=== PATIENT | male | born 1955 | race African-American/Black ===

== ENCOUNTER 2020-07-10 14:48 | Inpatient (IN) | payer BC ==
--- NOTE | 2020-07-10 15:35 | XR ---
EXAMINATION TYPE: XR chest 2V DATE OF EXAM: 07/10/2020 COMPARISON: NONE HISTORY: Right-sided chest pain. TECHNIQUE: Frontal and lateral views of the chest are obtained. FINDINGS: There is mild underlying emphysematous change without suspicious focal air space opacity, pleural effusion, or pneumothorax seen. The cardiac silhouette size is within normal limits. The o sseous structures are intact. IMPRESSION: Mild emphysematous change without acute pulmonary process.
--- NOTE | 2020-07-10 17:04 | US ---
EXAMINATION TYPE: US venous doppler duplex LE RT DATE OF EXAM: 07/10/2020 4:19 PM COMPARISON: NONE CLINICAL HISTORY: right leg pain. SIDE PERFORMED: Right TECHNIQUE: The lower extremity deep venous system is examined utilizing real time linear array sonog kelly with graded compression, doppler sonography and color-flow sonography. VESSELS IMAGED: Common Femoral Vein Deep Femoral Vein Greater Saphenous Vein * Femoral Vein Popliteal Vein Small Saphenous Vein * Proximal Calf Veins (* superficial vessels) Right Leg: Negative for DVT IMPRESSION: No evidence of deep vein thrombosis in the right leg.
[2020-07-10 17:11] LABS: Basophils % (A) 0 %; Eosinophils # (A) 0.1 k/uL (0-0.7); Eosinophils % (A) 1 %; HCT 43.7 % (39.0-53.0); HGB 14.2 gm/dL (13.0-17.5); Lymphocytes # (A) 1.4 k/uL (1.0-4.8); Lymphocytes % (A) 19 %; MCH 28.7 pg (25.0-35.0); MCHC 32.4 g/dL (31.0-37.0); MCV 88.6 fL (80.0-100.0); Mean Platelet Volume 7.3; Monocytes # (A) 0.5 k/uL (0-1.0); Monocytes % (A) 7 %; Neutrophils # (A) 5.3 k/uL (1.3-7.7); Neutrophils % (A) 71 %; Platelet Count 313 k/uL (150-450); RBC 4.93 m/uL (4.30-5.90); RDW 14.7 % (11.5-15.5); WBC 7.5 k/uL (3.8-10.6)
[2020-07-10 17:22] LABS: ALT <6 U/L (4-49); AST 25 U/L (17-59); African American GFR (CKD) 22 (>60 ml/min/1.73 sqM); Albumin 4.7 g/dL (3.5-5.0); Alkaline Phosphatase 103 U/L (38-126); Anion Gap 12 mmol/L; Blood Urea Nitrogen 44 mg/dL (9-20); Calcium 10.3 mg/dL (8.4-10.2); Carbon Dioxide 23 mmol/L (22-30); Chloride 101 mmol/L (98-107); Glucose 97 mg/dL (74-99); Magnesium 1.9 mg/dL (1.6-2.3); Non-African American GFR(CKD) 19 (>60 ml/min/1.73 sqM); Potassium 3.6 mmol/L (3.5-5.1); Sodium 136 mmol/L (137-145); Total Bilirubin 0.9 mg/dL (0.2-1.3); Total Protein 7.8 g/dL (6.3-8.2)
[2020-07-10 17:24] LABS: INR 0.9 (<1.2); Prothrombin Time 10.1 sec (9.0-12.0)
[2020-07-10 17:37] LABS: D-Dimer 2.54 mg/L FEU (<0.60)
[2020-07-10 19:15] LABS: Appearance,Urine Clear (Clear); Bilirubin,Urine Negative (Negative); Blood,Urine Negative (Negative); Color,Urine Yellow; Glucose,Urine (UA) Negative (Negative); Hyaline Casts,Urine 3 /lpf (0-2); Ketones,Urine Negative (Negative); Leukocyte Esterase,Urine Negative (Negative); Mucus,Urine Rare /hpf; Nitrite,Urine Negative (Negative); Protein,Urine 1+ (Negative); RBC,Urine <1 /hpf (0-5); Specific Gravity,Urine 1.015 (1.001-1.035); Squamous Epithelial Cell,Urine <1 /hpf (0-4); Urobilinogen,Urine <2.0 mg/dL (<2.0); WBC,Urine <1 /hpf (0-5)
[2020-07-10] MEDS ORDERED: NALOXONE 0.4 MG/ML 1 ML VIAL IV PRN (19:32)
--- NOTE | 2020-07-10 19:32 | ED ---
General Adult HPI - General Chief complaint: Recheck/Abnormal Lab/Rx Stated complaint: Sent by pcp Time Seen by Provider: 07/10/20 16:14 Source: patient Mode of arrival: ambulatory Limitations: no limitations - History of Present Illness Initial comments: Patient is a 65-year-old male with past medical history of dementia, high blood pressure who presents to the emergency department under the direction of Dr. Mejia. Patient reports that he went into his office on Monday as he was having right leg pain. Dr. Mejia brenton some blood work. He then called our facility today to state that he called the patient to tell him to come into the hospital. Patient was found to have high d-dimer and Dr. Mejia wanted him to have an ultrasound. Patient cannot provide any further details. He is a poor historian. Denies previous history of diabetes, renal disease, DVT or PE. Denies any chest pain or shortness of breath. No abdominal pain. No recent fevers or chills. The remainder of the HPI is limited. - Related Data Home Medications Medication Instructions Recorded Confirmed Dextroamphetamine/Amphetamine 15 mg PO BID 07/10/20 07/10/20 [Dextroamp-Amphetamin 30 mg Tab] Donepezil Hcl 23mg 1 tab PO DAILY 07/10/20 07/10/20 LORazepam [Ativan] 1 mg PO DAILY PRN 07/10/20 07/10/20 Metoprolol Tartrate [Lopressor] 50 mg PO BID-W/MEALS 07/10/20 07/10/20 NIFEdipine [NIFEdipine ER] 90 mg PO DAILY 07/10/20 07/10/20 Potassium Citrate [Potassium 10 meq PO BID 07/10/20 07/10/20 Citrate ER] hydrALAZINE HCL [Apresoline] 25 mg PO BID-W/MEALS 07/10/20 07/10/20 hydroCHLOROthiazide [Hydrodiuril] 25 mg PO DAILY 07/10/20 07/10/20 Allergies Allergy/AdvReac Type Severity Reaction Status Date / Time buspirone [From BuSpar] Allergy Anaphylaxis Verified 07/11/20 14:18 lisinopril Allergy Unknown Verified 07/10/20 17:51 tiotropium Allergy Anaphylaxis Verified 07/11/20 14:18 [From Spiriva with HandiHaler] Review of Systems ROS Statement: Those systems with pertinent positive or pertinent negative responses have been documented in the HPI. ROS Other: All systems not noted in ROS Statement are negative. Past Medical History Past Medical History: Unable to Obtain Past Surgical History: Unable to Obtain Smoking Status: Current every day smoker Past Alcohol Use History: None Reported Past Drug Use History: Marijuana General Exam Limitations: no limitations General appearance: alert, in no apparent distress Head exam: Present: atraumatic, normocephalic, normal inspection Eye exam: Present: normal appearance, PERRL, EOMI. Absent: scleral icterus, conjunctival injection, periorbital swelling ENT exam: Present: normal exam, mucous membranes moist Neck exam: Present: normal inspection. Absent: tenderness, meningismus, lymphadenopathy Respiratory exam: Present: normal lung sounds bilaterally. Absent: respiratory distress, wheezes, rales, rhonchi, stridor Cardiovascular Exam: Present: regular rate, normal rhythm, normal heart sounds. Absent: systolic murmur, diastolic murmur, rubs, gallop, clicks GI/Abdominal exam: Present: soft, normal bowel sounds. Absent: distended, tenderness, guarding, rebound, rigid Extremities exam: Present: normal inspection, full ROM, normal capillary refill, calf tenderness (right. ), other (5/5 muscle strength b/l le). Absent: tend erness, pedal edema, joint swelling Back exam: Present: normal inspection Neurological exam: Present: alert, oriented X3, CN II-XII intact Psychiatric exam: Present: normal affect, normal mood Skin exam: Present: warm, dry, intact, normal color. Absent: rash Course Vital Signs 07/10/20 07/10/20 07/10/20 14:51 16:31 17:00 Temperature 97.9 F Pulse Rate 96 81 72 Respiratory 18 18 16 Rate Blood Pressure 140/98 148/108 127/89 O2 Sat by Pulse 97 97 96 Oximetry 07/10/20 07/10/20 07/10/20 18:00 19:00 21:33 Temperature 99.0 F Pulse Rate 91 80 79 Respiratory 16 16 18 Rate Blood Pressure 127/89 147/105 150/103 O2 Sat by Pulse 98 97 97 Oximetry EKG Findings - EKG Comments: EKG Findings:: EKG demonstrates sinus rhythm with PACs. Rate of 75. WI interval 188. QRS 100. QTC of 490. Biphasic T-wave in V4 through V6. No old to compare to Procedures - Melvin Protocol (Time Out) Nurse: July Swann Medical Decision Making - Medical Decision Making On arrival patient was placed into room 8. A thorough history and physical exam was performed. IV is established. Laboratory studies were conducted and an ultrasound was performed the patient's right leg. D-dimer does come back elevated at 2.5. Creatinine is 3.2. Urinalysis is negative. Venous Doppler is negative for acute DVT. Chest x-ray demonstrates mild emphysematous changes. Results are discussed the patient. He denies previous history of kidney disease or failure. Denies NSAID use. Patient is on hydrochlorothiazide. Reports to frequent urination. Ultrasound of the kidneys is performed which demonstrates simple left renal cortical cyst. No solid renal mass or obstruction. No bladder mass. I did discuss the results with the patient. Recommended admission for further evaluation of renal failure. Spoke with Jenny from [facility] to agree to admit the patient. Patient is currently awaiting a bed on the floor - Lab Data Result diagrams: 07/11/20 06:30 07/12/20 05:40 Lab Results 07/10/20 07/10/20 07/10/20 Range/Units 16:36 16:36 16:36 WBC 7.5 (3.8-10.6) k/uL RBC 4.93 (4.30-5.90) m/uL Hgb 14.2 (13.0-17.5) gm/dL Hct 43.7 (39.0-53.0) % MCV 88.6 (80.0-100.0) fL MCH 28.7 (25.0-35.0) pg MCHC 32.4 (31.0-37.0) g/dL RDW 14.7 (11.5-15.5) % Plt Count 313 (150-450) k/uL MPV 7.3 Neutrophils % 71 % Lymphocytes % 19 % Monocytes % 7 % Eosinophils % 1 % Basophils % 0 % Neutrophils # 5.3 (1.3-7.7) k/uL Lymphocytes # 1.4 (1.0-4.8) k/uL Monocytes # 0.5 (0-1.0) k/uL Eosinophils # 0.1 (0-0.7) k/uL Basophils # 0.0 (0-0.2) k/uL PT 10.1 (9.0-12.0) sec INR 0.9 (<1.2) APTT 26.0 (22.0-30.0) sec D-Dimer 2.54 H (<0.60) mg/L FEU Sodium 136 L (137-145) mmol/L Potassium 3.6 (3.5-5.1) mmol/L Chloride 101 (98-107) mmol/L Carbon Dioxide 23 (22-30) mmol/L Anion Gap 12 mmol/L BUN 44 H (9-20) mg/dL Creatinine 3.28 H (0.66-1.25) mg/dL Est GFR (CKD-EPI)AfAm 22 (>60 ml/min/1.73 sqM) Est GFR (CKD-EPI)NonAf 19 (>60 ml/min/1.73 sqM) Glucose 97 (74-99) mg/dL Calcium 10.3 H (8.4-10.2) mg/dL Magnesium 1.9 (1.6-2.3) mg/dL Total Bilirubin 0.9 (0.2-1.3) mg/dL AST 25 (17-59) U/L ALT <6 (4-49) U/L Alkaline Phosphatase 103 (38-126) U/L Creatine Kinase (55-170) U/L Troponin I (0.000-0.034) ng/mL Total Protein 7.8 (6.3-8.2) g/dL Albumin 4.7 (3.5-5.0) g/dL Urine Color Urine Appearance (Clear) Urine pH (5.0-8.0) Ur Specific [place] (1.001-1.035) Urine Protein (Negative) Urine Glucose (UA) (Negative) Urine Ketones (Negative) Urine Blood (Negative) Urine Nitrite (Negative) Urine Bilirubin (Negative) Urine Urobilinogen (<2.0) mg/dL Ur Leukocyte Esterase (Negative) Urine RBC (0-5) /hpf Urine WBC (0-5) /hpf Ur Squamous Epith Cells (0-4) /hpf Hyaline Casts (0-2) /lpf Urine Mucus (None) /hpf 07/10/20 07/10/20 07/10/20 Range/Units 16:36 16:36 18:56 WBC (3.8-10.6) k/uL RBC (4.30-5.90) m/uL Hgb (13.0-17.5) gm/dL Hct (39.0-53.0) % MCV (80.0-100.0) fL MCH (25.0-35.0) pg MCHC (31.0-37.0) g/dL RDW (11.5-15.5) % Plt Count (150-450) k/uL MPV Neutrophils % % Lymphocytes % % Monocytes % % Eosinophils % % Basophils % % Neutrophils # (1.3-7.7) k/uL Lymphocytes # (1.0-4.8) k/uL Monocytes # (0-1.0) k/uL Eosinophils # (0-0.7) k/uL Basophils # (0-0.2) k/uL PT (9.0-12.0) sec INR (<1.2) APTT (22.0-30.0) sec D-Dimer (<0.60) mg/L FEU Sodium (137-145) mmol/L Potassium (3.5-5.1) mmol/L Chloride (98-107) mmol/L Carbon Dioxide (22-30) mmol/L Anion Gap mmol/L BUN (9-20) mg/dL Creatinine (0.66-1.25) mg/dL Est GFR (CKD-EPI)AfAm (>60 ml/min/1.73 sqM) Est GFR (CKD-EPI)NonAf (>60 ml/min/1.73 sqM) Glucose (74-99) mg/dL Calcium (8.4-10.2) mg/dL Magnesium (1.6-2.3) mg/dL Total Bilirubin (0.2-1.3) mg/dL AST (17-59) U/L ALT (4-49) U/L Alkaline Phosphatase (38-126) U/L Creatine Kinase 171 H (55-170) U/L Troponin I 0.020 (0.000-0.034) ng/mL Total Protein (6.3-8.2) g/dL Albumin (3.5-5.0) g/dL Urine Color Yellow Urine Appearance Clear (Clear) Urine pH 6.0 (5.0-8.0) Ur Specific [place] 1.015 (1.001-1.035) Urine Protein 1+ H (Negative) Urine Glucose (UA) Negative (Negative) Urine Ketones Negative (Negative) Urine Blood Negative (Negative) Urine Nitrite Negative (Negative) Urine Bilirubin Negative (Negative) Urine Urobilinogen <2.0 (<2.0) mg/dL Ur Leukocyte Esterase Negative (Negative) Urine RBC <1 (0-5) /hpf Urine WBC <1 (0-5) /hpf Ur Squamous Epith Cells <1 (0-4) /hpf Hyaline Casts 3 H (0-2) /lpf Urine Mucus Rare H (None) /hpf Disposition Clinical Impression: Elevated d-dimer, ITA (acute kidney injury), Right leg pain Disposition: ADMITTED IP TO THIS [facility] Condition: Stable Is patient prescribed a controlled substance at d/c from ED?: No Decision to Admit Reason: Admit from EC Decision Date: 07/10/20 Decision Time: 19:32
--- NOTE | 2020-07-10 20:05 | US ---
EXAMINATION TYPE: US renals and bladder DATE OF EXAM: 07/10/2020 COMPARISON: NONE CLINICAL HISTORY: kidney failure. kidney failure EXAM MEASUREMENTS: Right Kidney: 9.4 x 5.2 x 4.8 cm Left Kidney: 9.2 x 4.9 x 3.7 cm Right Kidney: lobulated contour Left Kidney: cystic area = 2.1 x 2.2 x 2.1cm Bladder: not fully distended Bilateral Jets seen: no IMPRESSION: There is simple left renal cortical cyst. No solid renal mass or obstruction. No evidence of bladder mass.
[2020-07-10] MEDS: SODIUM CHLORIDE 0.9% 1,000 ML IV SCH (20:13)
[2020-07-10] MEDS: POTASSIUM CITRATE 10 MEQ TABLET.ER PO SCH (21:38)
[2020-07-10] MEDS ORDERED: hydrALAZINE HCL 25 MG TAB PO STA (21:47)
[2020-07-10] MEDS ORDERED: METOPROLOL TARTRATE 50 MG TAB PO STA (21:48)
[2020-07-10] MEDS: HYDROcodone/APAP 5-325MG 1 EACH TAB PO PRN (23:21)
[2020-07-10] MEDS: LORazepam 1 MG TAB PO PRN (23:21)
[2020-07-11] MEDS: hydrALAZINE HCL 25 MG TAB PO SCH ×2 (07:51→16:19)
[2020-07-11] MEDS: METOPROLOL TARTRATE 50 MG TAB PO SCH ×2 (07:51→16:15)
[2020-07-11] MEDS: SODIUM CHLORIDE 0.9% 1,000 ML IV SCH ×2 (07:52→16:15)
[2020-07-11] MEDS: POTASSIUM CITRATE 10 MEQ TABLET.ER PO SCH ×2 (07:52→22:39)
[2020-07-11] MEDS: DONEPEZIL 10 MG TAB PO SCH (08:30)
[2020-07-11] MEDS: HYDROcodone/APAP 5-325MG 1 EACH TAB PO PRN (09:31)
[2020-07-11] MEDS: LORazepam 1 MG TAB PO PRN ×2 (11:02→22:15)
[2020-07-11] MEDS ORDERED: traMADol 50 MG TAB PO PRN (11:20)
[2020-07-11] MEDS: NICOTINE 21MG/24HR PATCH TRANSDERM SCH (11:30)
[2020-07-11 11:33] LABS: Basophils # (A) 0.03 X 10*3/uL (0.00-0.10); Basophils % (A) 0.5 %; Eosinophils # (A) 0.05 X 10*3/uL (0.04-0.35); Eosinophils % (A) 0.8 %; HCT 38.3 % (39.6-50.0); HGB 12.4 g/dL (13.0-17.0); Lymphocytes # (A) 1.98 X 10*3/uL (0.90-5.00); Lymphocytes % (A) 30.3 %; MCH 28.2 pg (27.0-32.0); MCHC 32.4 g/dL (32.0-37.0); Mean Platelet Volume 10.2 fL (9.5-12.2); Monocytes # (A) 0.69 X 10*3/uL (0.20-1.00); Monocytes % (A) 10.6 %; Neutrophils # (A) 3.76 X 10*3/uL (1.80-7.70); Neutrophils % (A) 57.5 %; Platelet Count 303 X 10*3/uL (140-440); RDW 13.7 % (11.5-14.5); WBC 6.53 X 10*3/uL (4.50-10.00)
[2020-07-11 11:44] LABS: African American GFR (CKD) 26.4 (60.0-200.0); Anion Gap 9.3 mmol/L (4.00-12.00); BUN/Creat Ratio 16.43 Ratio (12.00-20.00); Calcium 9.2 mg/dL (8.7-10.3); Carbon Dioxide 19.7 mmol/L (21.6-31.8); Non-African American GFR(CKD) 22.8 (60.0-200.0); Potassium 3.2 mmol/L (3.5-5.5)
[2020-07-11] MEDS ORDERED: IPRATROPIUM-ALBUTEROL 3 ML NEB INHALATION PRN (13:41)
--- NOTE | 2020-07-11 13:44 | P.HPIM ---
History of Present Illness 65-year-old male with past medical history of dementia, high blood pressure who presents to the emergency department under the direction of Dr. Mejia. Patient reports that he went into his office on Monday as he was having right leg pain. Dr. Malik brenton some blood work. Called our facility today to state that he called the patient to tell me come into the hospital. Patient was found to have high d-dimer and Dr. Malik wanted him to have an ultrasound.. Patient cannot provide any further details. He is a poor historian. Denies previous history of diabetes, renal disease, DVT or PE. Denies any chest pain or shortness of breath. No abdominal pain. No recent fevers or chills. Patient denied any chest pain shortness of breath. Patient had an ultrasound of the the left lower extremity which did not show any DVT patient has an elevated d-dimer although patient doesn't have any symptoms consistent with pulmonary embolism. Patient has good pulses involving both lower extremities. Patient pain appears to be mostly coming from lower back and radiating to the leg mostly in the lateral aspect appears to be sciatica. Patient although denied any tingling or numbness opting echo and computed tomography scan of the lumbar spine. Patient is also found to have creatinine of around 3.5 baseline is not known patient was started on IV fluids ultrasound of the kidney was opted which only showed a cyst nephrology was consulted. Review of Systems REVIEW OF SYSTEMS: CONSTITUTIONAL: No fever, no malaise, no fatigue. HEENT: No recent visual problems or hearing problems. Denied any sore throat. CARDIOVASCULAR: No chest pain, orthopnea, PND, no palpitations, no syncope. PULMONARY: No shortness of breath, no cough, no hemoptysis. GASTROINTESTINAL: No diarrhea, no nausea, no vomiting, no abdominal pain. NEUROLOGICAL: No headaches, no weakness, no numbness. HEMATOLOGICAL: Denies any bleeding or petechiae. GENITOURINARY: Denies any burning micturition, frequency, or urgency. MUSCULOSKELETAL/RHEUMATOLOGICAL: As mentioned in HPI ENDOCRINE: Denies any polyuria or polydipsia. The rest of the 14-point review of systems is negative. Past Medical History Past Medical History: Unable to Obtain, Hyperlipidemia, Hypertension, Myocardial Infarction (PR) Last Myocardial Infarction Date:: 1989 History of Any Multi-Drug Resistant Organisms: None Reported Past Surgical History: Unable to Obtain Past Anesthesia/Blood Transfusion Reactions: No Reported Reaction Past Psychological History: ADD/ADHD, Anxiety, Depression Smoking Status: Current every day smoker Past Alcohol Use History: None Reported Past Drug Use History: Marijuana Medications and Allergies Home Medications Medication Instructions Recorded Confirmed Type Dextroamphetamine/Amphetamine 15 mg PO BID 07/10/20 07/10/20 History [Dextroamp-Amphetamin 30 mg Tab] Donepezil Hcl 23mg 1 tab PO DAILY 07/10/20 07/10/20 History LORazepam [Ativan] 1 mg PO DAILY PRN 07/10/20 07/10/20 History Metoprolol Tartrate [Lopressor] 50 mg PO BID-W/MEALS 07/10/20 07/10/20 History NIFEdipine [NIFEdipine ER] 90 mg PO DAILY 07/10/20 07/10/20 History Potassium Citrate [Potassium 10 meq PO BID 07/10/20 07/10/20 History Citrate ER] hydrALAZINE HCL [Apresoline] 25 mg PO BID-W/MEALS 07/10/20 07/10/20 History hydroCHLOROthiazide [Hydrodiuril] 25 mg PO DAILY 07/10/20 07/10/20 History Allergies Allergy/AdvReac Type Severity Reaction Status Date / Time lisinopril Allergy Unknown Verified 07/10/20 17:51 Physical Exam Vitals: Vital Signs Temp Pulse Pulse Resp BP BP Pulse Ox 07/11/20 08:00 16 07/11/20 04:30 99.3 F 98 16 147/92 96 07/10/20 22:22 98.0 F 87 16 139/99 98 07/10/20 21:33 99.0 F 79 18 150/103 97 07/10/20 19:00 80 16 147/105 97 07/10/20 18:00 91 16 127/89 98 07/10/20 17:00 72 16 127/89 96 07/10/20 16:31 81 18 148/108 97 07/10/20 14:51 97.9 F 96 18 140/98 97 Intake and Output 07/10/20 07/11/20 07/11/20 22:59 06:59 14:59 Intake Total 590 Output Total 300 300 Balance 290 -300 Intake: Oral 590 Output: Urine 300 300 Other: Voiding Method Toilet Urinal Weight 75.75 kg PHYSICAL EXAMINATION: GENERAL: The patient is alert and oriented x3, not in any acute distress. Well developed, well nourished. HEENT: Pupils are round and equally reacting to light. EOMI. No scleral icterus. No conjunctival pallor. Normocephalic, atraumatic. No pharyngeal erythema. No thyromegaly. CARDIOVASCULAR: S1 and S2 present. No murmurs, rubs, or gallops. PULMONARY: Mild expiratory wheezing on exam pale good air entry into bilateral lung zambrano. ABDOMEN: Soft, nontender, nondistended, normoactive bowel sounds. No palpable organomegaly. MUSCULOSKELETAL: No joint swelling or deformity. EXTREMITIES: No cyanosis, clubbing, or pedal edema. NEUROLOGICAL: Gross neurological examination did not reveal any focal deficits. SKIN: No rashes. Results CBC & Chem 7: 07/11/20 06:30 07/11/20 06:30 Labs: Abnormal Lab Results - Last 24 Hours (Table) 07/10/20 07/10/20 07/10/20 Range/Units 16:36 16:36 16:36 Hgb (13.0-17.0) g/dL Hct (39.6-50.0) % D-Dimer 2.54 H (<0.60) mg/L FEU Sodium 136 L (137-145) mmol/L Potassium (3.5-5.5) mmol/L Carbon Dioxide (21.6-31.8) mmol/L BUN 44 H (9-20) mg/dL Creatinine 3.28 H (0.66-1.25) mg/dL Est GFR (CKD-EPI)AfAm (60.0-200.0) Est GFR (CKD-EPI)NonAf (60.0-200.0) Calcium 10.3 H (8.4-10.2) mg/dL Creatine Kinase 171 H (55-170) U/L Urine Protein (Negative) Hyaline Casts (0-2) /lpf Urine Mucus (None) /hpf 07/10/20 07/11/20 07/11/20 Range/Units 18:56 06:30 06:30 Hgb 12.4 L (13.0-17.0) g/dL Hct 38.3 L (39.6-50.0) % D-Dimer (<0.60) mg/L FEU Sodium (137-145) mmol/L Potassium 3.2 L (3.5-5.5) mmol/L Carbon Dioxide 19.7 L (21.6-31.8) mmol/L BUN 46.0 H (9-20) mg/dL Creatinine 2.8 H (0.66-1.25) mg/dL Est GFR (CKD-EPI)AfAm 26.4 L (60.0-200.0) Est GFR (CKD-EPI)NonAf 22.8 L (60.0-200.0) Calcium (8.4-10.2) mg/dL Creatine Kinase (55-170) U/L Urine Protein 1+ H (Negative) Hyaline Casts 3 H (0-2) /lpf Urine Mucus Rare H (None) /hpf Thrombosis Risk Factor Assmnt - Choose All That Apply Each Risk Factor Represents 2 Points: Age 61-74 years Thrombosis Risk Factor Assessment Total Risk Factor Score: 2 Thrombosis Risk Factor Assessment Level: Low Risk Assessment and Plan Plan: -Possible sciatica or lower lumbar back pain we'll obtain a computed tomography scan without contrast of the lumbar spine. Continue with present pain medications had a tramadol for pain. Ruled out DVT of the lower extremity -Elevated d-dimer with some nonspecific test pretest probability for PE is low side do not believe patient will need any further workup for pulmonary embolism -Acute renal failure: Etiology is not clear patient is undergoing workup of body was consulted patient received IV fluids. We will continue to monitor the kidney function urine output. -COPD with mild acute exacerbation patient was started on inhaled steroids inhalational treatments patient can use to smoke smoking cessation counseling was provided and patient was started on a nicotine patch. -Hypokalemia potassium will be replaced -Hypertension -Hyperlipidemia -Could not disease -Depression -DVT prophylaxis subcutaneous heparin
[2020-07-11] MEDS ORDERED: Potassium Replacement Protocol 1 EACH MISC MISCELLANE PRN (14:04)
[2020-07-11] MEDS: POTASSIUM CHLORIDE ER 20 MEQ TAB.ER PO SCH ×2 (14:15→16:16)
--- NOTE | 2020-07-11 14:57 | CT ---
EXAMINATION TYPE: CT lumbar spine wo con DATE OF EXAM: 07/11/2020 COMPARISON: None HISTORY: Numbness and tingling CT DLP: 982 mGycm Automated exposure control for dose reduction was used. Images were obtained from the level of T12-S2 vertebra without contrast. The lumbar vertebra have normal alignment. There is spurring of the endplates. Posterior elements are intact. There is multilevel mild hypertrophic lumbar facet arthropathy. There is no evidence of para spinal mass. There is no compression fracture. Abdominal aorta is atheromatous. There is 2.8 cm abdom inal aorta. The sacroiliac joints are intact. There is no lumbar paraspinal mass. There is posterior disc bulging with facet arthropathy with resultant moderately severe spinal stenos is at L4-5. There is less severe stenosis at L5-S1. There is a mild relative spinal stenosis at L3-4. IMPRESSION: Spondylotic changes. There is moderately severe spinal stenosis at L4-5 with posterior disc bulging a nd herniation and facet arthropathy.
--- NOTE | 2020-07-11 15:20 | CONS ---
CONSULTATION REASON FOR CONSULT: Renal failure. HISTORY OF PRESENT ILLNESS: The patient is a 65-year-old male who was admitted to the hospital with complaints of right leg pain. The patient denied any history of trauma. Venous Dopplers were negative for DVTs. The patient denied any previous history of kidney diseases. His creatinine was noted to be 3.28 on admission. The patient states that he follows up regularly with a primary care physician and has never been told of any kidney diseases. He denies use of any nonsteroidal anti-inflammatory agents prior to admission. The patient was maintained on diuretics and antihypertensive medications prior to admission. Blood pressure has not been low. He denies any urinary symptoms as well. PAST MEDICAL HISTORY: Hypertension. SOCIAL HISTORY: Positive for marijuana and smoking as well, smoking cigarettes. MEDICATIONS: Medications prior to admission included potassium hydralazine, HydroDIURIL, Lopressor, Ativan, nifedipine, metoprolol. ALLERGIES: Include LISINOPRIL, reaction not known. EXAMINATION: Patient is comfortable, awake, alert, oriented x3. He is not in any acute distress. Blood pressure was 139/99, heart rate 87 per minute, patient is afebrile. Examination of the heart S1, S2. Examination of the lungs, bilateral breath sounds are heard. Abdomen is soft, nontender. Examination of lower extremities shows no evidence of edema. V[employer]ER exam grossly intact. LAB: Show hemoglobin 12.4, sodium 137, potassium 3.2, chloride 108. CO2 is 19.7, BUN 46, creatinine 2.8. ASSESSMENT: 1. Acute kidney injury, prerenal, currently improving with IV hydration. I will continue with the IV fluids for now. UA shows 1+ protein. We can repeat another UA down the road. Ultrasound is unremarkable. 2. Left renal cortical cyst, benign appearing, noted on ultrasound. 3. Right leg pain, etiology unclear. No evidence of DVT. CT of the lumbar spine is ordered, results are pending. 4. History of hypertension. Blood pressure was uncontrolled, currently slightly improved. The patient is maintained on Lopressor 50 mg b.i.d. along with hydralazine, the dose of which can be increased. He was also on nifedipine at home. This can be restarted as well if blood pressure remains uncontrolled. PLAN: Continue IV fluids. Replace potassium. Resume calcium channel blockers if blood pressure remains elevated. Thank you for this consultation. We will continue to follow the patient with you during his hospitalization. TIARRA / RIGO: [id number] /
[2020-07-11 15:40] VITALS: BMI 23.9
[2020-07-11] MEDS ORDERED: IPRATROPIUM-ALBUTEROL 3 ML NEB INHALATION SCH (16:00)
[2020-07-11] MEDS: TAMSULOSIN 0.4 MG CAP.ER.24H PO SCH (16:16)
[2020-07-11] MEDS: HYDROcodone/APAP 10-325MG 1 EACH TAB PO PRN ×2 (16:16→22:15)
[2020-07-11] MEDS: HEPARIN SODIUM,PORCINE 5,000 UNIT/ML 1 ML VIAL SQ SCH ×2 (16:16→22:15)
[2020-07-11] MEDS ORDERED: BUDESONIDE 0.5 MG/2 ML NEBU INHALATION SCH (20:00)
[2020-07-12] MEDS: SODIUM CHLORIDE 0.9% 1,000 ML IV SCH ×2 (04:30→11:57)
[2020-07-12 06:33] LABS: Magnesium 1.8 mg/dL (1.6-2.3); Potassium 3.6 mmol/L (3.5-5.1)
[2020-07-12] MEDS: POTASSIUM CITRATE 10 MEQ TABLET.ER PO SCH ×2 (07:55→22:23)
[2020-07-12] MEDS: HEPARIN SODIUM,PORCINE 5,000 UNIT/ML 1 ML VIAL SQ SCH ×3 (07:55→23:49)
[2020-07-12] MEDS: DONEPEZIL 10 MG TAB PO SCH (07:55)
[2020-07-12] MEDS: NICOTINE 21MG/24HR PATCH TRANSDERM SCH (07:55)
[2020-07-12] MEDS: METOPROLOL TARTRATE 50 MG TAB PO SCH ×2 (07:55→17:32)
[2020-07-12] MEDS: hydrALAZINE HCL 25 MG TAB PO SCH ×2 (07:55→17:32)
[2020-07-12] MEDS: HYDROcodone/APAP 10-325MG 1 EACH TAB PO PRN ×3 (07:58→22:37)
[2020-07-12 09:44] LABS: African American GFR (CKD) 29 (>60 ml/min/1.73 sqM); Anion Gap 8 mmol/L; Blood Urea Nitrogen 41 mg/dL (9-20); Calcium 9.2 mg/dL (8.4-10.2); Carbon Dioxide 18 mmol/L (22-30); Chloride 109 mmol/L (98-107); Glucose 102 mg/dL (74-99); Non-African American GFR(CKD) 25 (>60 ml/min/1.73 sqM); Sodium 135 mmol/L (137-145)
--- NOTE | 2020-07-12 14:55 | P.PN ---
Subjective 65-year-old male with past medical history of dementia, high blood pressure who presents to the emergency department under the direction of Dr. Mejia. Patient reports that he went into his office on Monday as he was having right leg pain. Dr. Malik brenton some blood work. Called our facility today to state that he called the patient to tell me come into the hospital. Patient was found to have high d-dimer and Dr. Malik wanted him to have an ultrasound.. Patient cannot provide any further details. He is a poor historian. Denies previous history of diabetes, renal disease, DVT or PE. Denies any chest pain or shortness of breath. No abdominal pain. No recent fevers or chills. Patient denied any chest pain shortness of breath. Patient had an ultrasound of the the left lower extremity which did not show any DVT patient has an elevated d-dimer although patient doesn't have any symptoms consistent with pulmonary embolism. Patient has good pulses involving both lower extremities. Patient pain appears to be mostly coming from lower back and radiating to the leg mostly in the lateral aspect appears to be sciatica. Patient although denied any tingling or numbness opting echo and computed tomography scan of the lumbar spine. Patient is also found to have creatinine of around 3.5 baseline is not known patient was started on IV fluids ultrasound of the kidney was opted which only showed a cyst nephrology was consulted. 07/12/2020 Patient's creatinine improved minimally to around 2.6. Patient's been can urine IV fluids. Patient had lumbar spinal CT which showed L4-L5 lumbar stenosis moderately severe along with disc herniation. His pain is bit better today. Orthopedic surgery/spinal specialist will be consulted. Constitutional: Denied any fatigue denied any fever. Cardio vascular: denied any chest pain, palpitations Gastrointestinal denied any nausea vomiting Pulmonary: Denied any shortness of breath cough Neurologic denied any new focal deficits All inpatient medications were reviewed and appropriate changes in these medications as dictated in the interval history and assessment and plan. Objective - Vital Signs Vital signs: Vital Signs Temp 97.2 F L 07/12/20 11:54 Pulse 88 07/12/20 11:54 Resp 16 07/12/20 11:54 BP 177/91 07/12/20 11:54 Pulse Ox 97 07/12/20 11:54 Intake & Output 07/11/20 07/12/20 07/12/20 18:59 06:59 18:59 Intake Total 590 Output Total 300 300 675 Balance -300 290 -675 Weight 75.75 kg Intake: Oral 590 Output: Urine 300 300 675 Other: Voiding Method Toilet Toilet Urinal Urinal Urinal # Voids 1 # Bowel Movements 1 - Exam PHYSICAL EXAMINATION: GENERAL: The patient is alert and oriented x3, not in any acute distress. Well developed, well nourished. HEENT: Pupils are round and equally reacting to light. EOMI. No scleral icterus. No conjunctival pallor. Normocephalic, atraumatic. No pharyngeal erythema. No thyromegaly. CARDIOVASCULAR: S1 and S2 present. No murmurs, rubs, or gallops. PULMONARY: Mild expiratory wheezing on exam pale good air entry into bilateral lung zambrano. ABDOMEN: Soft, nontender, nondistended, normoactive bowel sounds. No palpable organomegaly. MUSCULOSKELETAL: No joint swelling or deformity. EXTREMITIES: No cyanosis, clubbing, or pedal edema. NEUROLOGICAL: Gross neurological examination did not reveal any focal deficits. SKIN: No rashes. - Labs CBC & Chem 7: 07/11/20 06:30 07/12/20 05:40 Labs: Abnormal Lab Results - Last 24 Hours (Table) 07/12/20 Range/Units 05:40 Sodium 135 L (137-145) mmol/L Chloride 109 H (98-107) mmol/L Carbon Dioxide 18 L (22-30) mmol/L BUN 41 H (9-20) mg/dL Creatinine 2.61 H (0.66-1.25) mg/dL Glucose 102 H (74-99) mg/dL Assessment and Plan Plan: - lower lumbar back pain secondary to L4-L5 disc herniation along with moderately severe lumbar spinal stenosis. Continue with present pain medications had a tramadol for pain. Ruled out DVT of the lower extremity -Elevated d-dimer with some nonspecific test pretest probability for PE is low side do not believe patient will need any further workup for pulmonary embolism -Acute renal failure: Appears to have prerenal azotemia. Patient is being continued on IV fluids with some improvement in creatinine. -COPD with mild acute exacerbation patient was started on inhaled steroids inhalational treatments -Nicotine abuse smoking cessation counseling was provided and patient was started on a nicotine patch. -Hypokalemia potassium will be replaced -Hypertension -Hyperlipidemia -Coronary artery disease -Depression -DVT prophylaxis subcutaneous heparin
--- NOTE | 2020-07-12 16:18 | P.CNOR ---
History of Present Illness - HPI Consult date: 07/12/20 Consult reason: low back pain History of present illness: Patient is a pleasant 65-year-old -[place] male who seen and examined today at bedside. The patient presented in terms of his pain at his low back and towards his right lower extremity. He's been having pain over the past 2-3 weeks without any specific incident or trauma. His found has severely elevated creatinine and poor kidney function and was admitted in regards to his low back pain and renal insufficiency. Patient denies any prior problems with acute his kidneys. He says that he did not have any kidney problems in the past denies a ny diabetes. He says he has had low back pain for more than 10 years but about 3 weeks ago it started getting significantly worse without any specific incident or trauma. He denies any problems or changes in his bowel or bladder function. He denies any changes control of his bowel or bladder function. He has been very shaky on his legs and had started to use a cane and occasionally a walker at home for the past couple weeks because he's been so shaky on his legs. He denies any recent infection or chest pain or shortness of breath. Denies any nausea or vomiting. He says the pain goes from his back towards his right hip and gluteal area and over his right thigh. He is not having pains on the left. Review of Systems Anesthesia per HPI. Denies any fevers chills. Denies a night sweats. He admits to frequent tobacco. Past Medical History Past Medical History: Unable to Obtain, Musculoskeletal Disorder Additional Past Medical History / Comment(s): History of knee surgery over 10 years ago. He is somewhat of a poor historian but he denies diabetes or history of kidney problems. He says he does have back pain over the past 10-11 years but has had severe worsening in his back and right lower extremity over the past 2-3 weeks without incident. Last Myocardial Infarction Date:: 1989 History of Any Multi-Drug Resistant Organisms: None Reported Past Surgical History: Unable to Obtain Past Anesthesia/Blood Transfusion Reactions: No Reported Reaction Smoking Status: Current every day smoker Past Alcohol Use History: None Reported Past Drug Use History: Marijuana Medications and Allergies Home Medications Medication Instructions Recorded Confirmed Type Dextroamphetamine/Amphetamine 15 mg PO BID 07/10/20 07/10/20 History [Dextroamp-Amphetamin 30 mg Tab] Donepezil Hcl 23mg 1 tab PO DAILY 07/10/20 07/10/20 History LORazepam [Ativan] 1 mg PO DAILY PRN 07/10/20 07/10/20 History Metoprolol Tartrate [Lopressor] 50 mg PO BID-W/MEALS 07/10/20 07/10/20 History NIFEdipine [NIFEdipine ER] 90 mg PO DAILY 07/10/20 07/10/20 History Potassium Citrate [Potassium 10 meq PO BID 07/10/20 07/10/20 History Citrate ER] hydrALAZINE HCL [Apresoline] 25 mg PO BID-W/MEALS 07/10/20 07/10/20 History hydroCHLOROthiazide [Hydrodiuril] 25 mg PO DAILY 07/10/20 07/10/20 History Allergies Allergy/AdvReac Type Severity Reaction Status Date / Time buspirone [From BuSpar] Allergy Anaphylaxis Verified 07/11/20 14:18 lisinopril Allergy Unknown Verified 07/10/20 17:51 tiotropium Allergy Anaphylaxis Verified 07/11/20 14:18 [From Spiriva with HandiHaler] Physical Examination Osteopathic Statement: *. No significant issues noted on an osteopathic structural exam other than those noted in the History and Physical/Consult. - L Spine: dermatomal strength & reflexes bilateral Strength: hip flexion: 5/5 (His back has some tenderness over his right SI joint and lumbosacral junction. He has 5 out of 5 strength with dorsiflexion plantar flexion and EHL. No clonus. Thighs and calves are soft and nontender. He sits up adequately in bed but is shaky on his feet due to pain) Results - Labs Labs: Abnormal Lab Results - Last 24 Hours (Table) 07/12/20 Range/Units 05:40 Sodium 135 L (137-145) mmol/L Chloride 109 H (98-107) mmol/L Carbon Dioxide 18 L (22-30) mmol/L BUN 41 H (9-20) mg/dL Creatinine 2.61 H (0.66-1.25) mg/dL Glucose 102 H (74-99) mg/dL H & H 07/10/20 07/11/20 Range/Units 16:36 06:30 Hgb 14.2 12.4 L (13.0-17.5) gm/dL Hct 43.7 38.3 L (39.0-53.0) % Coagulation 07/10/20 Range/Units 16:36 INR 0.9 (<1.2) Result Diagrams: 07/11/20 06:30 07/12/20 05:40 - Diagnostic results CT Scan - lumbar: report reviewed, image reviewed (CT lumbar spine is reviewed. There is severe stenosis L3 4 and L4 5. There is significant disc changes at L4 5 with vacuum phenomenon. There is some small erosion at the inferior aspect of L4 vertebral body which may be a Schmorl's node.) Assessment and Plan Assessment: Acute on chronic low back pain Severe degenerative disc changes L45 with vacuum phenomenon and some vertebral body changes at L4 of uncertain etiology Renal insufficiency with elevated creatinine Right lower extremity radiculopathy Plan: Acute on chronic low back pain Severe degenerative disc changes L45 with vacuum phenomenon and some vertebral body changes at L4 of uncertain etiology Renal insufficiency with elevated creatinine Right lower extremity radiculopathy In terms the patient's back it somewhat difficult to get a good handle on the specific etiology of his symptoms. He has been having long-term back pain but has had worsening over the past several weeks. He is not having any specific neurologic loss in his lower extremities or changes in bowel bladder function. He does have significant changes on his computed tomography scan at L3 4 and L4 5 with stenosis. There is also significant vacuum phenomenon isolated at L4 5 with some changes within the vertebral body of L4. This may be a Schmorl's node but it may also represent some bony erosion. He says he is not aware of any specific issues that could have led to his renal his insufficiency but he is having significantly elevated creatinine. With the number of different issues involved I think we should get further information and his lumbar spine to rule out the possibility of discitis and osteomyelitis. I think an MRI would help us in this regard. I've ordered an MRI without contrast, as he is having significant insufficiency his renal function. I would hold off on any nonsteroidal anti-inflammatories given his renal function. And I like to see the MRI further before starting any steroid or considering steroid injections. If there is evidence of infection and will have infectious disease consult on him however if it does not appear to be infectious process then we can start steroid medication or interventional pain management for possible epidural steroids. The MRI will certainly help us to determine the course of treatment for him. I discussed this with him answers questions and he seems understand.
--- NOTE | 2020-07-12 16:48 | PN ---
PROGRESS NOTE Patient is being followed for acute kidney injury. He was admitted to the hospital with right leg pain. The venous Dopplers were negative for DVT. Lumbar CT shows moderately severe spinal stenosis L4-L5 with disk bulging and herniation. Overall, patient states his pain is better. His creatinine was 3.28 on initial admission. Currently patient is maintained on IV fluids and his serum creatinine is down to 2.6. He has been voiding well. Blood pressure is not low, in fact, slightly on the high side. EXAMINATION: Today blood pressure 148/92, heart rate 111 per minute, patient is afebrile. He has been euvolemic. LABS: Labs from today show sodium 135, potassium 3.6, chloride 109, CO2 is 18, BUN 41, creatinine 2.6. ASSESSMENT: 1. Acute kidney injury, acute tubular necrosis as well as a prerenal component, slowly improving. The UA is quite benign with 1+ protein. No evidence of hydronephrosis on CT scan and ultrasound. Continue with IV fluids for now. No nephrotoxic agents on board. Control blood pressure. 2. Left renal cyst. 3. Hypertension. Blood pressure is staying on the higher side. I will resume the nifedipine that patient was taking at home prior to admission and we can start with 30 mg XL daily. PLAN: Repeat labs in a.m. Patient will need followup as outpatient to follow up for possible underlying CKD as well as hypertension. MMODL / IJN: [id number] /
[2020-07-12] MEDS: TAMSULOSIN 0.4 MG CAP.ER.24H PO SCH (17:32)
[2020-07-12] MEDS: LORazepam 1 MG TAB PO PRN (22:37)
[2020-07-13] MEDS: SODIUM CHLORIDE 0.9% 1,000 ML IV SCH ×3 (00:26→16:26)
[2020-07-13] MEDS: HYDROcodone/APAP 10-325MG 1 EACH TAB PO PRN ×3 (04:46→23:29)
[2020-07-13] MEDS: POTASSIUM CITRATE 10 MEQ TABLET.ER PO SCH ×2 (08:53→20:58)
[2020-07-13] MEDS: DONEPEZIL 10 MG TAB PO SCH (08:53)
[2020-07-13] MEDS: NICOTINE 21MG/24HR PATCH TRANSDERM SCH (08:54)
[2020-07-13] MEDS: HEPARIN SODIUM,PORCINE 5,000 UNIT/ML 1 ML VIAL SQ SCH ×3 (08:54→23:30)
[2020-07-13] MEDS: hydrALAZINE HCL 25 MG TAB PO SCH ×2 (08:54→17:24)
[2020-07-13] MEDS: NIFEdipine XL 30 MG TAB.ER.24 PO SCH (08:54)
[2020-07-13] MEDS: METOPROLOL TARTRATE 50 MG TAB PO SCH ×2 (08:54→17:23)
[2020-07-13] MEDS: LORazepam 1 MG TAB PO PRN (09:31)
--- NOTE | 2020-07-13 11:34 | MR ---
EXAMINATION TYPE: MR lumbar spine wo con DATE OF EXAM: 07/13/2020 COMPARISON: CT lumbar spine 07/11/2020 HISTORY: Low back pain with disc changes at L4 5 TECHNIQUE: Multiplanar, multisequence images of the lumbar spine were acquired. L1-L2: Normal disc appearance without desiccation. No herniation, protrusion or disc bulging. No ca nal stenosis is present. Foramina are patent bilaterally. L2-L3: Posterior broad-based disc bulge causes anterior mass effect on the thecal sac, mild spinal st enosis. Circumferential extension of disc material causes some inferior encroachment on the foramina. L3-L4: Circumferential extension of endplate disc complex causes anterior mass effect on the thecal s ac, there is moderate to severe spinal stenosis, axial image #11,12 and 13. Circumferential extension endplate disc complex causes bilateral foraminal encroachment. Facet arthropathy is noted with hyper trophy of the ligamentum flavum. L4-L5: Circumferential extension endplate disc complex causes bilateral foraminal encroachment right greater than left with some possible disc material present seen on sagittal image #10, axial image #1 0 of the T1 data sets, posterior extension endplate disc complex causes anterior mass effect on the t hecal sac, there is a trefoil appearance of the thecal sac, moderate to severe spinal stenosis, there is facet arthropathy with hypertrophy ligamentum flavum causing posterior lateral mass effect on the thecal sac. L5-S1: Facet arthropathy changes present, there is hypertrophy ligamentum flavum causing some posteri or lateral mass effect on the thecal sac with possible encroachment on the lateral recesses, no signi ficant spinal stenosis. Circumferential extension of endplate disc complex causes some foraminal encr oachment bilaterally. Circumferential posterior disc bulge causes mild anterior mass effect on the th ecal sac Lumbar segments are intact. No paraspinal masses are identified. Conus medullaris has a normal appe arance. There is multilevel spondylosis, there is endplate discogenic marrow signal change, Schmorl's node present at the inferior endplate of L4. Loss of disc height signal is greatest at L4-5, L3-4, L 2-3, there is associated vacuum phenomenon at L4-5. There is a mild spinal curvature which could be p ositional. Probable parapelvic or cortical cyst noted within the left kidney incidentally. Aortic ect emilie noted in the abdominal aorta. IMPRESSION: Spinal stenosis, possible disc herniation L4-5, contrast-enhanced exam may be of benefit, multilevel facet arthropathy change and degenerative disc disease as described, multilevel spinal stenosis and a dditional findings above.
--- NOTE | 2020-07-13 11:45 | P.PN ---
Progress Note - Text Progress Note Date: 07/13/20 The patient underwent his MRI of his lumbar spine today. I spoke with the nurse in regards the case. The patient is still having some pain in his back and down his right lower extremity. He is amatory around his room and into the hallways. He has been afebrile overnight. And his neurologic status is not changed. The MRI of his lumbar spine images are reviewed and shows evidence of severe stenosis at L4 5 with Schmorl's node at L4. There is no evidence of infectious etiology. There is no significant increased signal increase at the disc space. There is evidence of some stenosis L3 4 as well and degenerative disc disease L3 4 L4 5 there is no obvious fracture. The official reading is still pending. Assessment and plan Acute on chronic low back pain Spinal stenosis L3 4 and L4 5 with right lower extremity radiculopathy Renal insufficiency Had some concerns for the possibility of infectious etiology of his lumbar spine but this is ruled out with the MRI results. There is no evidence of infectious etiology that I can see at the lumbar spine itself. The official results is still pending and waiting to be red but I think that this can go on with treatment for his radiculopathy and stenosis. He may have some benefit with IV steroid medications to alleviate some of his symptoms. I think that interventional pain management could be helpful to see if they can alleviate some of his pain with possible epidural steroid injection possibly targeting L4 5. If he were to fail conservative treatment he would be a candidate for surgical intervention. I do not have any plans for surgical intervention during this hospitalization. He is not having any neurologic deficit in his lower extremities to merit any need for urgent surgical intervention and he is certainly interested in trying conservative treatments prior to considering any surgical intervention. From a spine surgery standpoint we can follow him up on an outpatient basis after his hospitalization. he is continuing management terms of his renal insufficiency per medicine.
[2020-07-13] MEDS: methylPREDNISolone SOD SUCCI 125 MG/2 ML VIAL IV SCH ×2 (12:03→20:58)
--- NOTE | 2020-07-13 14:22 | P.CON ---
Consult Note - . Consult date: 07/13/20 Assessment/Plan:: This is a 65-year-old gentleman with history of acute on chronic lower back pain with radiation to the right lower extremity down to the right foot with numbness and tingling in the right leg in no specific radicular distribution. The patient was seen sitting by the window in no apparent distress. By physical exam he has normal muscle strength in the lower extremities bilaterally. He has tenderness in the lumbar paravertebral musculature bilaterally. The patient may benefit from getting lumbar epidural steroid injection under fluoroscopic guidance for his symptoms however he refused to have this injection stating that he had injections in the past which made his pain worse. At this point the patient is to continue his medical treatment as per the primary care team to be followed as an outpatient by his pain physician. I thank you for the referral
--- NOTE | 2020-07-13 14:38 | PN ---
PROGRESS NOTE Patient is seen for followup for acute kidney injury. Renal function somewhat improved since admission with creatinine down to 2.6 from 3.28 on initial admission. Patient is currently being hydrated. He was admitted with right lower extremity pain and there was no evidence of DVT. He was found to have spinal stenosis and is being evaluated by Orthopedic Surgery. No significant complaints today. PHYSICAL EXAMINATION: Blood pressure 157/100, heart rate 79 per minute. He is afebrile. EXAMINATION OF THE HEART: S1, S2. EXAMINATION OF THE LUNGS: Decreased breath sounds at the bases. Abdomen is soft, nontender. Examination of lower extremities shows no evidence of edema. CHILD WELFARE SPECIALIST exam grossly intact. LABS: Labs show sodium 135, potassium 3.6, chloride 109, CO2 is 18, BUN 41, creatinine 2.6. ASSESSMENT: 1. Acute kidney injury most likely prerenal with component of acute tubular necrosis as renal function is improving at a much slower rate for just a simple prerenal acute kidney injury. UA appears to be quite benign, however, trace protein is present and ultrasound was unremarkable. At this point, I will continue to avoid nephrotoxic agents. Continue with IV hydration. Avoid hypotension. Blood pressure is actually on the higher side and patient will need followup as outpatient. He is advised to avoid use of any nonsteroidal anti-inflammatory agents post discharge. 2. Back pain, right leg pain with the spinal stenosis noted on lumbar CT, being followed by Orthopedic Surgery. MMODL / IJN: [id number] /
[2020-07-13] MEDS ORDERED: LORazepam 0.5 MG TAB PO STA (16:34)
[2020-07-13] MEDS: TAMSULOSIN 0.4 MG CAP.ER.24H PO SCH (17:23)
--- NOTE | 2020-07-14 00:22 | P.PN ---
Subjective Progress Note Date: 07/13/20 Principal diagnosis: Acute Low back pain Mr. Menjivar is a 65-year-old male with past medical history of dementia, high blood pressure who presents to the emergency department under the direction of Dr. Mejia. Patient reports that he went into his office on Monday as he was having right leg pain. Dr. Malik brenton some blood work. Called our facility today to state that he called the patient to tell me come into the hospital. Patient was found to have high d-dimer and Dr. Malik wanted him to have an ultrasound.. Patient cannot provide any further details. He is a poor historian. Denies previous history of diabetes, renal disease, DVT or PE. Denies any chest pain or shortness of breath. No abdominal pain. No recent fevers or chills. Patient denied any chest pain shortness of breath. Patient had an ultrasound of the the left lower extremity which did not show any DVT patient has an elevated d-dimer although patient doesn't have any symptoms consistent with pulmonary embolism. Patient has good pulses involving both lower extremities. Patient pain appears to be mostly coming from lower back and radiating to the leg mostly in the lateral aspect appears to be sciatica. Patient although denied any tingling or numbness opting echo and computed abigail ography scan of the lumbar spine. Patient is also found to have creatinine of around 3.5 baseline is not known patient was started on IV fluids ultrasound of the kidney was opted which only showed a cyst nephrology was consulted. On 07/13/2020-patient was seen and examined at the bedside. He just got back from the MRI. Patient is sitting up in a couch by the window, he states that his right lower extremity pain has still been the same. He also has ongoing chronic low back pain. Patient denies having any tingling or numbness in his extremities. On review of systems patient denies having any fevers chills or rigors. No chest pain or palpitations. No cough or difficulty breathing. No a bdominal pain nausea vomiting or diarrhea. No dysuria or hematuria. On reviewing the vitals T-max of 98.6, heart rate 96, respiratory 16, blood pressure 166 x 93, saturating at 98% on room air. Labs from this morning no new labs. Active Medications Hydrocodone Bitart/Acetaminophen (Hydrocodone/Apap 10-325mg 1 Each Tab) 1 each PO Q6H PRN PRN Reason: Pain Last Admin: 07/13/20 23:29 Dose: 1 each Documented by: Donepezil HCl (Donepezil 10 Mg Tab) 10 mg PO DAILY [facility] Last Admin: 07/13/20 08:53 Dose: 10 mg Documented by: Heparin Sodium (Porcine) (Heparin Sodium,Porcine 5,000 Unit/Ml 1 Ml Vial) 5,000 unit SQ Q8HR [facility] Last Admin: 07/13/20 23:30 Dose: 5,000 unit Documented by: Hydralazine HCl (Hydralazine Hcl 25 Mg Tab) 25 mg PO BID-W/MEALS [facility] Last Admin: 07/13/20 17:24 Dose: 25 mg Documented by: Sodium Chloride (Saline 0.9%) 1,000 mls @ 100 mls/hr IV .Q10H [facility] Last Admin: 07/13/20 16:26 Dose: 100 mls/hr Documented by: Lorazepam (Lorazepam 1 Mg Tab) 1 mg PO DAILY PRN PRN Reason: Anxiety Last Admin: 07/13/20 09:31 Dose: 1 mg Documented by: Methylprednisolone Sodium Succinate (Methylprednisolone Sod Succi 125 Mg/2 Ml Vi al) 60 mg IV Q12HR [facility] Last Admin: 07/13/20 20:58 Dose: 60 mg Documented by: Metoprolol Tartrate (Metoprolol Tartrate 50 Mg Tab) 50 mg PO BID-W/MEALS [facility] Last Admin: 07/13/20 17:23 Dose: 50 mg Documented by: Miscellaneous Information (Potassium Replacement Protocol 1 Each Misc) 1 each MISCELLANE DAILY PRN; Protocol PRN Reason: Per Protocol Naloxone HCl (Naloxone 0.4 Mg/Ml 1 Ml Vial) 0.2 mg IV Q2M PRN PRN Reason: Opioid Reversal Nicotine (Nicotine 21mg/24hr Patch) 1 patch TRANSDERM DAILY [facility] Last Admin: 07/13/20 08:54 Dose: 1 patch Documented by: Nifedipine (Nifedipine Xl 30 Mg Tab.Er.24) 30 mg PO DAILY [facility] Last Admin: 07/13/20 08:54 Dose: 30 mg Documented by: Potassium Citrate (Potassium Citrate 10 Meq Tablet.Er) 10 meq PO BID [facility] Last Admin: 07/13/20 20:58 Dose: 10 meq Documented by: Tamsulosin HCl (Tamsulosin 0.4 Mg Cap.Er.24h) 0.4 mg PO PC-SUPPER [facility] Last Admin: 07/13/20 17:23 Dose: 0.4 mg Documented by: Tramadol HCl (Tramadol 50 Mg Tab) 50 mg PO QID PRN PRN Reason: Pain/Discomfort Objective - Vital Signs Vital signs: Vital Signs Temp 97.9 F 07/13/20 09:02 Pulse 79 07/13/20 09:02 Resp 16 07/12/20 20:42 BP 157/100 07/13/20 09:02 Pulse Ox 94 L 07/13/20 09:02 Intake & Output 07/12/20 07/13/20 07/13/20 18:59 06:59 18:59 Intake Total 1200 Output Total 675 400 Balance 525 -400 Intake: Intake, IV Titration 1200 Amount Sodium Chloride 0.9% 1, 1200 000 ml @ 100 mls/hr IV . Q10H [facility] Rx#:[id number] Output: Urine 675 400 Other: Voiding Method Urinal Urinal - Exam PHYSICAL EXAMINATION: GENERAL: The patient is alert and oriented x3, not in any acute distress. Well developed, well nourished. HEENT: Pupils are round and equally reacting to light. EOMI. No scleral icterus. No conjunctival pallor. Normocephalic, atraumatic. No pharyngeal erythema. No thyromegaly. CARDIOVASCULAR: S1 and S2 present. No murmurs, rubs, or gallops. PULMONARY: Mild expiratory wheezing on exam ABDOMEN: Soft, nontender, nondistended, normoactive bowel sounds. No palpable organomegaly. MUSCULOSKELETAL: No joint swelling or deformity. EXTREMITIES: No cyanosis, clubbing, or pedal edema. NEUROLOGICAL: Gross neurological examination did not reveal any focal deficits. SKIN: No rashes. - Labs CBC & Chem 7: 07/11/20 06:30 07/12/20 05:40 Assessment and Plan Assessment: ASSESSMENT Acute on chronic lower lumbar back pain secondary to L4-L5 disc herniation Severe lumbar spinal stenosis Acute kidney injury COPD with mild acute exacerbation Nicotine dependence Hypokalemia Hypertension Hyperlipidemia Coronary artery disease Depression DVT prophylaxis with heparin PLAN: Patient had an MRI done this morning showing spinal stenosis with possible disc herniation at L4-L5 so he has been started on Solu-Medrol. Anesthesia services have been consulted for epidural steroid injection, but patient refused. Orthopedics on board and following the patient closely. Continue with the rest of his current medication regimen, further recommendations depending on the progress of the patient.
[2020-07-14] MEDS: SODIUM CHLORIDE 0.9% 1,000 ML IV SCH ×2 (06:09→16:36)
[2020-07-14 08:35] LABS: Basophils # (A) 0 X 10*3/uL (0.00-0.10); Basophils % (A) 0 %; Eosinophils # (A) 0 X 10*3/uL (0.04-0.35); Eosinophils % (A) 0 %; HCT 34.2 % (39.6-50.0); Lymphocytes # (A) 0.74 X 10*3/uL (0.90-5.00); Lymphocytes % (A) 9.3 %; MCH 28.2 pg (27.0-32.0); MCHC 32.2 g/dL (32.0-37.0); MCV 87.7 fL (80.0-97.0); Mean Platelet Volume 10.9 fL (9.5-12.2); Monocytes # (A) 0.11 X 10*3/uL (0.20-1.00); Monocytes % (A) 1.4 %; Neutrophils % (A) 88.9 %; Platelet Count 278 X 10*3/uL (140-440); RDW 13.7 % (11.5-14.5); WBC 7.98 X 10*3/uL (4.50-10.00)
[2020-07-14] MEDS: DONEPEZIL 10 MG TAB PO SCH (08:42)
[2020-07-14] MEDS: METOPROLOL TARTRATE 50 MG TAB PO SCH ×2 (08:42→17:12)
[2020-07-14] MEDS: NICOTINE 21MG/24HR PATCH TRANSDERM SCH (08:42)
[2020-07-14] MEDS: POTASSIUM CITRATE 10 MEQ TABLET.ER PO SCH ×2 (08:42→20:37)
[2020-07-14] MEDS: methylPREDNISolone SOD SUCCI 125 MG/2 ML VIAL IV SCH ×2 (08:42→20:37)
[2020-07-14] MEDS: NIFEdipine XL 30 MG TAB.ER.24 PO SCH (08:42)
[2020-07-14] MEDS: hydrALAZINE HCL 25 MG TAB PO SCH ×2 (08:42→17:12)
[2020-07-14] MEDS: HEPARIN SODIUM,PORCINE 5,000 UNIT/ML 1 ML VIAL SQ SCH ×2 (08:43→15:55)
[2020-07-14] MEDS: HYDROcodone/APAP 10-325MG 1 EACH TAB PO PRN ×2 (08:44→17:55)
[2020-07-14 09:21] LABS: African American GFR (CKD) 39.7 (60.0-200.0); Anion Gap 9.9 mmol/L (4.00-12.00); BUN/Creat Ratio 19.5 Ratio (12.00-20.00); Calcium 9.5 mg/dL (8.7-10.3); Carbon Dioxide 21.1 mmol/L (21.6-31.8); Non-African American GFR(CKD) 34.3 (60.0-200.0); Potassium 3.6 mmol/L (3.5-5.5)
[2020-07-14] MEDS ORDERED: hydrALAZINE HCL 20 MG/ML 1 ML VIAL IVP STA (12:28)
[2020-07-14 13:19] LABS: INR 0.9 (<1.2); Partial Thromboplastin Time 23.8 sec (22.0-30.0); Prothrombin Time 9.7 sec (9.0-12.0)
[2020-07-14] MEDS ORDERED: IV FLUID CONTINUATION 1,000 ML IV ONE (14:18)
--- NOTE | 2020-07-14 14:39 | P.PCN ---
Date of Procedure: 07/14/20 Procedure(s) Performed: PREOPERATIVE DIAGNOSIS: 1- Lumbar Degenerative Disc Diseases 2-Lumbar spondylosis with Facet arthropathy without myelopathy 3-lumbar spinal stenosis. 4-lumbar radiculopathy POSTOPERATIVE DIAGNOSIS: Same as preop diagnosis. PROCEDURE 1. Lumbar epidural steroid injection under fluoroscopic guidance at the L5-S1 level. (Fluoroscopy imaging was available in radiology department) 2. Lumbar epidurogram. ANESTHESIA: Local with 1% lidocaine 3 ml and , moderate sedation with intravenous Versed 1 mg ,and fentanyle 50 Mcg EBL: Minimal PROCEDURE INDICATION: The patient with low back pain and radiculitis symptoms unresponsive to conservative treatment. Fluoroscopy was used to optimize visualization of the needle placement and to maximize safety. PROCEDURE DESCRIPTION / TECHNIQUE: The patient was seen and identified in the preoperative area. Risks, benefits, complications including but not limited to infections ,bleeding ,allergic reaction to the medications ,nerve damage and not complete pain releife , and alternatives were discussed with the patient. The patient agreed to proceed with the procedure and signed the consent. IV was started, and vital signs were stable. Patient was taken to the OR and time out was completed. The patient was placed in the prone position on procedure table and a pillow was placed under the abdomen to reduce lumbar lordosis. The lumbosacral area was prepped and draped in the usual sterile fashion.ere closely monitored during the procedure. Conscious sedation was used during the procedure to decrease patients anxiety. Vital signs was monitered during the entire procedure. Using anterior-posterior fluoroscopy, the L5-S1 interlaminar space was identified and the skin over this site was marked and then infiltrated with 1% lidocaine subcutaneously. Subsequently, a 20-gauge Tuohy epidural needle was inserted and advanced toward the epidural space using the ``Loss of resistance technique and guided by AP and lateral fluoroscopy. The correct needle position in the epidural space was verified with the injection of 2 mL of the water soluble contrast dye Isovue 200 contrast and observing an excellent epidurogram with the epidural spread of the dye, after negative aspiration for blood and CSF and in the absence of paresthesias. Again after negative aspiration, a 6 ml mixture containing 80 mg of Kenalog , and 2 ml of preservative free Normal Saline, and 2 ml of preservative free lidocaine 1% solution was injected and a washout of epidurogram was seen. Needle was withdrawn intact, skin was cleansed, and bandages were applied. COMPLICATIONS: None DISPOSITION / PLANS: The patient was placed in a supine position and transferred to the recovery area in a stable condition for observation. There was no evidence of lower extremity motor or sensory deficit after the procedure. Rocio pinedo was discharged from the recovery room after meeting discharge criteria. Home discharge instructions were given to the patient by the staff. The patient was reexamined prior to discharge. The patient will schedule a follow up in the clinic in 2-4 weeks.
--- NOTE | 2020-07-14 15:21 | FL ---
Fluoroscopy HISTORY: Pain 2 seconds fluoroscopy time supplied to the referring clinician. 1 intraoperative C-arm images docume nt the procedure. See dictated report from anesthesia.
--- NOTE | 2020-07-14 16:13 | PN ---
PROGRESS NOTE The patient is seen for followup for acute kidney injury. He is currently maintained on IV fluids. The patient is complaining of increased urination. His renal function has been slowly improving with creatinine down to 2.0 today from peak of 3.28 on initial admission. No previous labs available for comparison. PHYSICAL EXAMINATION: Blood pressure was elevated 174/97, heart rate 83 per minute. Patient is afebrile. EXAMINATION OF THE HEART: S1, S2. EXAMINATION OF THE LUNGS: Bilateral breath sounds are heard. Abdomen is soft, nontender. Examination of lower extremities shows no evidence of edema. [employer] exam is grossly intact. LABS: Labs show sodium 137, potassium 3.6, chloride 106, BUN 39, serum creatinine 2.0, hemoglobin 11.0 g/dL. ASSESSMENT: 1. Acute kidney injury, appears to be prerenal with component of acute tubular necrosis, currently slowly improving with IV hydration. I will discontinue the IV fluids as patient's blood pressure is elevated and he has been hydrated. 2. Hypertension, currently uncontrolled. Patient was restarted on nifedipine. However, I only added 30 mg instead of the 90 that he was taking and I will increase it to 30 mg daily. 3. Back pain with right leg pain, status post epidural steroid injection. PLAN: Discontinue IV fluids. Increase hydralazine to 50 mg twice a day and increase Procardia to 90 mg daily that patient was taking at home. Part of the exacerbation of blood pressure is also related to the recent steroid injection. The patient will need to follow up as outpatient for possible underlying CKD. MMODL / IJN: [id number] /
[2020-07-14] MEDS: TAMSULOSIN 0.4 MG CAP.ER.24H PO SCH (17:12)
[2020-07-14] MEDS: LORazepam 1 MG TAB PO PRN (20:37)
--- NOTE | 2020-07-14 23:21 | P.PN ---
Subjective Progress Note Date: 07/14/20 Principal diagnosis: Acute Low back pain Mr. Menjivar is a 65-year-old male with past medical history of dementia, high blood pressure who presents to the emergency department under the direction of Dr. Mejia. Patient reports that he went into his office on Monday as he was having right leg pain. Dr. Malik brenton some blood work. Called our facility today to state that he called the patient to tell me come into the hospital. Patient was found to have high d-dimer and Dr. Malik wanted him to have an ultrasound.. Patient cannot provide any further details. He is a poor historian. Denies previous history of diabetes, renal disease, DVT or PE. Denies any chest pain or shortness of breath. No abdominal pain. No recent fevers or chills. Patient denied any chest pain shortness of breath. Patient had an ultrasound of the the left lower extremity which did not show any DVT patient has an elevated d-dimer although patient doesn't have any symptoms consistent with pulmonary embolism. Patient has good pulses involving both lower extremities. Patient pain appears to be mostly coming from lower back and radiating to the leg mostly in the lateral aspect appears to be sciatica. Patient although denied any tingling or numbness opting echo and computed abigail ography scan of the lumbar spine. Patient is also found to have creatinine of around 3.5 baseline is not known patient was started on IV fluids ultrasound of the kidney was opted which only showed a cyst nephrology was consulted. On 07/13/2020-patient was seen and examined at the bedside. He just got back from the MRI. Patient is sitting up in a couch by the window, he states that his right lower extremity pain has still been the same. He also has ongoing chronic low back pain. Patient denies having any tingling or numbness in his extremities. On review of systems patient denies having any fevers chills or rigors. No chest pain or palpitations. No cough or difficulty breathing. No a bdominal pain nausea vomiting or diarrhea. No dysuria or hematuria. On reviewing the vitals T-max of 98.6, heart rate 96, respiratory 16, blood pressure 166 x 93, saturating at 98% on room air. Labs from this morning no new labs. On 07/14/2020-patient was seen and examined at the bedside. Patient had epidural steroid injection done this afternoon by Dr. Crawford. He states that his pain is much better after the procedure. He is unhappy that he missed his lunch. Patient denies having any chest pain or palpitations. No cough or difficulty in breathing. No abdominal pain nausea vomiting or diarrhea. No dysuria or hematuria. On reviewing the vitals patient's T-max of 98.6, heart rate 90s 200s, respiratory rate 17, blood pressure 176 x 94 saturating at 96% on room air. On reviewing his labs from this morning white count of 7.9, hemoglobin 11, platelets 278. Sodium 137, potassium 3.6, chloride 106, bicarb 21, BUN 39, creatinine 2.0. Active Medications Hydrocodone Bitart/Acetaminophen (Hydrocodone/Apap 10-325mg 1 Each Tab) 1 each PO Q6H PRN PRN Reason: Pain Last Admin: 07/14/20 17:55 Dose: 1 each Documented by: Donepezil HCl (Donepezil 10 Mg Tab) 10 mg PO DAILY [facility] Last Admin: 07/14/20 08:42 Dose: 10 mg Documented by: Heparin Sodium (Porcine) (Heparin Sodium,Porcine 5,000 Unit/Ml 1 Ml Vial) 5,000 unit SQ Q8HR [facility] Last Admin: 07/14/20 15:55 Dose: Not Given Documented by: Hydralazine HCl (Hydralazine Hcl 25 Mg Tab) 50 mg PO BID-W/MEALS [facility] Last Admin: 07/14/20 17:12 Dose: 50 mg Documented by: Lorazepam (Lorazepam 1 Mg Tab) 1 mg PO DAILY PRN PRN Reason: Anxiety Last Admin: 07/14/20 20:37 Dose: 1 mg Documented by: Methylprednisolone Sodium Succinate (Methylprednisolone Sod Succi 125 Mg/2 Ml Vi al) 60 mg IV Q12HR [facility] Last Admin: 07/14/20 20:37 Dose: 60 mg Documented by: Metoprolol Tartrate (Metoprolol Tartrate 50 Mg Tab) 50 mg PO BID-W/MEALS [facility] Last Admin: 07/14/20 17:12 Dose: 50 mg Documented by: Miscellaneous Information (Potassium Replacement Protocol 1 Each Misc) 1 each MISCELLANE DAILY PRN; Protocol PRN Reason: Per Protocol Naloxone HCl (Naloxone 0.4 Mg/Ml 1 Ml Vial) 0.2 mg IV Q2M PRN PRN Reason: Opioid Reversal Nicotine (Nicotine 21mg/24hr Patch) 1 patch TRANSDERM DAILY [facility] Last Admin: 07/14/20 08:42 Dose: 1 patch Documented by: Nifedipine (Nifedipine Xl 30 Mg Tab.Er.24) 90 mg PO DAILY [facility] Potassium Citrate (Potassium Citrate 10 Meq Tablet.Er) 10 meq PO BID [facility] Last Admin: 07/14/20 20:37 Dose: 10 meq Documented by: Tamsulosin HCl (Tamsulosin 0.4 Mg Cap.Er.24h) 0.4 mg PO PC-SUPPER [facility] Last Admin: 07/14/20 17:12 Dose: 0.4 mg Documented by: Tramadol HCl (Tramadol 50 Mg Tab) 50 mg PO QID PRN PRN Reason: Pain/Discomfort Objective - Vital Signs Vital signs: Vital Signs Temp 98.6 F 07/14/20 14:17 Pulse 94 07/14/20 14:17 Resp 17 07/14/20 14:17 BP 176/94 07/14/20 14:17 Pulse Ox 96 07/14/20 14:17 Intake & Output 07/13/20 07/14/20 07/14/20 18:59 06:59 18:59 Intake Total 1200 1560 25 Output Total 600 Balance 1200 960 25 Intake: IV 25 Intake, IV Titration 1200 Amount Sodium Chloride 0.9% 1, 1200 000 ml @ 100 mls/hr IV . Q10H [facility] Rx#:[id number] Oral 1200 360 Output: Urine 600 Other: Voiding Method Urinal # Voids 3 - Exam PHYSICAL EXAMINATION: GENERAL: The patient is alert and oriented x3, not in any acute distress. Well developed, well nourished. HEENT: Pupils are round and equally reacting to light. EOMI. No scleral icterus. No conjunctival pallor. CARDIOVASCULAR: S1 and S2 present. No murmurs, rubs, or gallops. PULMONARY: Mild expiratory wheezing on exam ABDOMEN: Soft, nontender, nondistended, normoactive bowel sounds. No palpable organomegaly. MUSCULOSKELETAL: No joint swelling or deformity. EXTREMITIES: No cyanosis, clubbing, or pedal edema. NEUROLOGICAL: Gross neurological examination did not reveal any focal deficits. - Labs CBC & Chem 7: 07/14/20 04:17 07/14/20 04:17 Labs: Abnormal Lab Results - Last 24 Hours (Table) 07/14/20 07/14/20 Range/Units 04:17 04:17 RBC 3.90 L (4.40-5.60) X 10*6/uL Hgb 11.0 L (13.0-17.0) g/dL Hct 34.2 L (39.6-50.0) % Lymphocytes # 0.74 L (0.90-5.00) X 10*3/uL Monocytes # 0.11 L (0.20-1.00) X 10*3/uL Eosinophils # 0 L (0.04-0.35) X 10*3/uL Carbon Dioxide 21.1 L (21.6-31.8) mmol/L BUN 39.0 H (9.0-27.0) mg/dL Creatinine 2.0 H (0.6-1.5) mg/dL Est GFR (CKD-EPI)AfAm 39.7 L (60.0-200.0) Est GFR (CKD-EPI)NonAf 34.3 L (60.0-200.0) Glucose 136 H (70-110) mg/dL Assessment and Plan Assessment: ASSESSMENT Acute on chronic lower lumbar back pain secondary to L4-L5 disc herniation Severe lumbar spinal stenosis Acute kidney injury COPD with mild acute exacerbation Nicotine dependence Hypokalemia Hypertension Hyperlipidemia Coronary artery disease Depression DVT prophylaxis with heparin PLAN: Patient had an MRI done showing spinal stenosis with possible disc herniation at L4-L5 so he has been started on Solu-Medrol. Anesthesia services have been consulted for epidural steroid injection,procedure done this afternoon by Dr. Crawford. Orthopedics on board and following the patient closely. Patient's creatinine is trending down. Nephrology on board and following the patient closely. Continue with the rest of his current medication regimen, further recommendations depending on the progress of the patient.
[2020-07-15] MEDS: HEPARIN SODIUM,PORCINE 5,000 UNIT/ML 1 ML VIAL SQ SCH ×3 (00:51→17:35)
[2020-07-15] MEDS: HYDROcodone/APAP 10-325MG 1 EACH TAB PO PRN ×4 (01:10→17:55)
[2020-07-15] MEDS: METOPROLOL TARTRATE 50 MG TAB PO SCH ×2 (04:34→17:35)
[2020-07-15] MEDS: hydrALAZINE HCL 25 MG TAB PO SCH ×2 (04:34→17:34)
[2020-07-15] MEDS: NICOTINE 21MG/24HR PATCH TRANSDERM SCH ×2 (08:20→08:27)
[2020-07-15] MEDS: methylPREDNISolone SOD SUCCI 125 MG/2 ML VIAL IV SCH (08:21)
[2020-07-15] MEDS: DONEPEZIL 10 MG TAB PO SCH (08:21)
[2020-07-15] MEDS: POTASSIUM CITRATE 10 MEQ TABLET.ER PO SCH (08:26)
[2020-07-15] MEDS ORDERED: NIFEdipine XL 30 MG TAB.ER.24 PO SCH (09:00)
[2020-07-15 11:38] VITALS: BP 165/90; PULSE 86; RESP 16; TEMP 97.7
[2020-07-15] MEDS: TAMSULOSIN 0.4 MG CAP.ER.24H PO SCH (17:35)
--- NOTE | 2020-07-15 21:53 | PN ---
PROGRESS NOTE Patient is seen for followup for acute kidney injury. Renal function continues to improve; serum creatinine down to 2.0 as of yesterday. Patient is being discharged today. PHYSICAL EXAMINATION: Blood pressure is 165/90, heart rate 86 per minute. He is afebrile. Examination shows patient is euvolemic. No evidence of edema in lower extremities. Abdomen is soft, nontender. LABS: Sodium 137 from yesterday. Serum creatinine 2.0, BUN 39, potassium 3.6. ASSESSMENT: 1. Acute kidney injury, acute tubular necrosis, with component of hypovolemia on initial admission, currently improving. 2. Hypertension, uncontrolled, currently slightly better. 3. Back pain with right leg pain, status post epidural toe steroid injection. 4. Spinal stenosis. PLAN: Follow up as outpatient in 1-2 weeks' time. Repeat labs as outpatient prior to office visit and continue to avoid NSAIDs. Continue current antihypertensive regimen. MMODL / IJN: [id number] /
--- NOTE | 2020-07-15 23:58 | P.DS ---
Providers Date of admission: 07/10/20 19:32 Expected date of discharge: 07/15/20 Attending physician: Angel Alexander Consults: 07/10/20 19:33 Consult Physician Urgent Consulting Provider: Gillian Whitman Consult Reason/Comments: sridhar Do you want consulting provider notified?: Yes 07/12/20 13:55 Consult Physician Routine Consulting Provider: Maria Isabel Tom Consult Reason/Comments: Back Pain Do you want consulting provider notified?: Yes 07/13/20 11:39 Consult to Anesthesia Routine Consulting Provider: Anesthesia,Services Consult Reason/Comments: radicuolapthy and stenosis for possible SAHIL [facility] Course: HPI - Mr. Jefferson is a 65-year-old male with past medical history of dementia, high blood pressure who presents to the emergency department under the direction of Dr. Mejia. Patient reports that he went into his office on Monday as he was having right leg pain. Dr. Malik brenton some blood work. Called our facility today to state that he called the patient to tell me come into the hospital. Patient was found to have high d-dimer and Dr. Malik wanted him to have an ultrasound.. Patient cannot provide any further details. He is a poor historian. Denies previous history of diabetes, renal disease, DVT or PE. Denies any chest pain or shortness of breath. No abdominal pain. No recent fevers or chills. Patient denied any chest pain shortness of breath. Patient had an ultrasound of the the left lower extremity which did not show any DVT patient has an elevated d-dimer although patient doesn't have any symptoms consi stent with pulmonary embolism. Patient has good pulses involving both lower extremities. Patient pain appears to be mostly coming from lower back and radiating to the leg mostly in the lateral aspect appears to be sciatica. Patient although denied any tingling or numbness opting echo and computed tomography scan of the lumbar spine. Patient is also found to have creatinine of around 3.5 baseline is not known patient was started on IV fluids ultrasound of the kidney was opted which only showed a cyst nephrology was consulted. Hospital course- On 07/13/2020-patient was seen and examined at the bedside. He just got back from the MRI. Patient is sitting up in a couch by the window, he states that his right lower extremity pain has still been the same. He also has ongoing chronic low back pain. Patient denies having any tingling or numbness in his extremities. On review of systems patient denies having any fevers chills or rigors. No chest pain or palpitations. No cough or difficulty breathing. No abdominal pain nausea vomiting or diarrhea. No dysuria or hematuria. On reviewing the vitals T-max of 98.6, heart rate 96, respiratory 16, blood pressure 166 x 93, saturating at 98% on room air. Labs from this morning no new labs. On 07/14/2020-patient was seen and examined at the bedside. Patient had epidural steroid injection done this afternoon by Dr. Crawford. He states that his pain is much better after the procedure. He is unhappy that he missed his lunch. Patient denies having any chest pain or palpitations. No cough or difficulty in breathing. No abdominal pain nausea vomiting or diarrhea. No dysuria or hematuria. On reviewing the vitals patient's T-max of 98.6, heart rate 90s 200s, respiratory rate 17, blood pressure 176 x 94 saturating at 96% on room air. On reviewing his labs from this morning white count of 7.9, hemoglobin 11, platelets 278. Sodium 137, potassium 3.6, chloride 106, bicarb 21, BUN 39, creatinine 2.0. On 07/15/2020 - Patient states his back pain has improved with the epidural steroid injection. On reviewing his labs his creatinine is 2.0. Nephrology evaluated the patient and cleared him for discharge. His hydralazine has been increased to 50 mg twice daily and nifedipine has been increased from 30 to 90 mg for better blood pressure control. He was seen by orthopedics and they wanted him to be discharged on a tapering dose of steroids. So the patient is being discharged home in stable condition. Vital Signs Last 24 Hours 07/15/20 07/15/20 07/15/20 04:23 07:04 09:19 Temperature 98.7 F 98.5 F Pulse Rate [ 100 72 Pulse Oximetery ] Respiratory 18 17 Rate Blood Pressure 162/100 160/96 162/85 [Left Arm] O2 Sat by Pulse 97 97 Oximetry 07/15/20 11:13 Temperature 97.7 F Pulse Rate [ 86 Pulse Oximetery ] Respiratory 16 Rate Blood Pressure 165/90 [Left Arm] O2 Sat by Pulse 96 Oximetry PHYSICAL EXAMINATION: GENERAL: The patient is alert and oriented x3, not in any acute distress. Well developed, well nourished. HEENT: Pupils are round and equally reacting to light. EOMI. No scleral icterus. No conjunctival pallor. CARDIOVASCULAR: S1 and S2 present. No murmurs, rubs, or gallops. PULMONARY: Mild expiratory wheezing on exam ABDOMEN: Soft, nontender, nondistended, normoactive bowel sounds. No palpable organomegaly. MUSCULOSKELETAL: No joint swelling or deformity. EXTREMITIES: No cyanosis, clubbing, or pedal edema. NEUROLOGICAL: Gross neurological examination did not reveal any focal deficits. DISCHARGE DIAGNOSIS Acute on chronic lower lumbar back pain secondary to L4-L5 disc herniation Severe lumbar spinal stenosis Acute kidney injury COPD with mild acute exacerbation Nicotine dependence Hypokalemia Hypertension Hyperlipidemia Coronary artery disease Depression Follow up : Advised to follow up with Nephrology, Orthopedics in 1-2 weeks. Discussed with him about the change in his medication doses at length. Patient Condition at Discharge: Stable Plan - Discharge Summary Discharge Rx Participant: No New Discharge Prescriptions: New predniSONE 20 mg PO DIRECTED #24 tab hydrALAZINE HCL [Apresoline] 50 mg PO BID-W/MEALS #60 tab Tamsulosin [Flomax] 0.4 mg PO PC-SUPPER #30 cap.er.24h Continue hydroCHLOROthiazide [Hydrodiuril] 25 mg PO DAILY Metoprolol Tartrate [Lopressor] 50 mg PO BID-W/MEALS Dextroamphetamine/Amphetamine [Dextroamp-Amphetamin 30 mg Tab] 15 mg PO BID Potassium Citrate [Potassium Citrate ER] 10 meq PO BID LORazepam [Ativan] 1 mg PO DAILY PRN PRN Reason: Anxiety Donepezil Hcl 23mg 1 tab PO DAILY NIFEdipine [NIFEdipine ER] 90 mg PO DAILY #30 tab Discontinued hydrALAZINE HCL [Apresoline] 25 mg PO BID-W/MEALS Discharge Medication List Dextroamphetamine/Amphetamine [Dextroamp-Amphetamin 30 mg Tab] 15 mg PO BID 07/10/20 [History] Donepezil Hcl 23mg 1 tab PO DAILY 07/10/20 [History] LORazepam [Ativan] 1 mg PO DAILY PRN 07/10/20 [History] Metoprolol Tartrate [Lopressor] 50 mg PO BID-W/MEALS 07/10/20 [History] Potassium Citrate [Potassium Citrate ER] 10 meq PO BID 07/10/20 [History] hydroCHLOROthiazide [Hydrodiuril] 25 mg PO DAILY 07/10/20 [History] NIFEdipine [NIFEdipine ER] 90 mg PO DAILY #30 tab 07/15/20 [Rx] Tamsulosin [Flomax] 0.4 mg PO PC-SUPPER #30 cap.er.24h 07/15/20 [Rx] hydrALAZINE HCL [Apresoline] 50 mg PO BID-W/MEALS #60 tab 07/15/20 [Rx] predniSONE 20 mg PO DIRECTED #24 tab 07/15/20 [Rx] Follow up Appointment(s)/Referral(s): Maria Isabel Tom DO [Doctor of Osteopathic Medicine] - 3 Weeks Reinier Mejia MD [Primary Care Provider] - 1-2 days Discharge/Stand Alone Forms: Anes Pain/[facility] Instructions, Who Do I Call?, Community Resources Discharge Disposition: HOME SELF-CARE
== END 2020-07-15 18:38 | disposition home or self-care (01) | DRG 551 ==
LOC: EC 14:48 → 5NMEDONC 19:32
PROVIDERS: ADMIT Hospitalist; ATTEND Hospitalist
PROC: 3E0R33Z Introduction of Anti-inflammatory into Spinal Canal, Percutaneous Approach (ICD-10-PCS; principal; 2020-07-10)
PROC: B01BZZZ Fluoroscopy of Spinal Cord (ICD-10-PCS; 2020-07-10)
DX: M51.16 Intervertebral disc disorders with radiculopathy, lumbar region (principal); N17.0 Acute kidney failure with tubular necrosis; J44.1 Chronic obstructive pulmonary disease with (acute) exacerbation; F03.90 Unspecified dementia, unspecified severity, without behavioral disturbance, psychotic disturbance, mood disturbance, and anxiety; Z20.822 Contact with and (suspected) exposure to COVID-19; M48.061 Spinal stenosis, lumbar region without neurogenic claudication; N28.1 Cyst of kidney, acquired; E78.5 Hyperlipidemia, unspecified; I10 Essential (primary) hypertension; F41.9 Anxiety disorder, unspecified; F32.9 Major depressive disorder, single episode, unspecified; F90.9 Attention-deficit hyperactivity disorder, unspecified type; E87.6 Hypokalemia; F17.210 Nicotine dependence, cigarettes, uncomplicated; G89.29 Other chronic pain; M47.26 Other spondylosis with radiculopathy, lumbar region; I25.10 Atherosclerotic heart disease of native coronary artery without angina pectoris; E86.1 Hypovolemia; I25.2 Old myocardial infarction; Z71.6 Tobacco abuse counseling; Z71.3 Dietary counseling and surveillance; Z79.899 Other long term (current) drug therapy; Z88.8 Allergy status to other drugs, medicaments and biological substances
CPT/HCPCS: 36415; 62323; 71046; 72131; 72148; 76770; 80048; 80053; 81001; 82550; 83735; 84132; 84484; 85025; 85379; 85610; 85730; 87635; 93005; 99152; 99211; 99285